=== PATIENT | male | born 1970 | race Caucasian/White ===

== ENCOUNTER 2022-08-08 13:47 | Emergency (ER) | payer OTHER ==
[2022-08-08] MEDS ORDERED: Bisacodyl 5 MG Tab PO ONE (14:27)
[2022-08-08] MEDS ORDERED: Metoclopramide 10 MG Tab PO ONE (14:27)
[2022-08-08] MEDS ORDERED: Lactulose Soln 10 GM/15 ML 30 ML UD Cup PO ONE (14:27)
== END 2022-08-08 16:23 | disposition home or self-care (01) ==
LOC: DL.ED 13:47
DX: K59.00 Constipation, unspecified (principal); I10 Essential (primary) hypertension; Z79.82 Long term (current) use of aspirin
CPT/HCPCS: 74019; 99283; A9270-GY